=== PATIENT | female | born 1950 | race Caucasian/White ===

== ENCOUNTER 2020-03-13 13:50 | Emergency (ER) | payer MEDICARE ==
[~2020-03-13] VITALS: Ht 170.2 cm; Wt 85.5 kg
[~2020-03-13 13:50] MED LIST: METH2.5T PO; NEBI20TA2 PO
--- NOTE | 2020-03-13 14:18 | PHYS DOC ---
General Adult EDM: Chief Complaint: FEVER, thrush HPI: HPI: 69-year-old female presents with chief complaint of mouth soreness and thrush. The patient is currently on chemotherapy for breast cancer. Her last treatment was 7 days ago. She had a fever yesterday of 101, but the fever is gone today. She spoke with her oncologist who recommended she come to the ER because the patient did not want to go to the emergency room. She tells me that she is feeling pretty okay except for the thrush. It is worse on the bilateral tongue. She was given nystatin in the past and it was effective. She does not have a repeat prescription for this. Review of Systems: Review of Systems: Constitutional: Fever yesterday Eyes: Denies change in visual acuity HENT: Sore mouth and sore throat Respiratory: Denies cough or shortness of breath Cardiovascular: Denies chest pain or edema GI: Denies abdominal pain, nausea, vomiting, bloody stools or diarrhea : Denies dysuria Musculoskeletal: Denies back pain or joint pain Integument: Denies rash Neurologic: Denies headache, focal weakness or sensory changes Endocrine: Denies polyuria or polydipsia Lymphatic: Denies swollen glands Psychiatric: Denies depression or anxiety Heart Score: Risk Factors: Risk Factors: DM, Current or recent (<one month) smoker, HTN, HLP, family history of CAD, obesity. Risk Scores: Score 0 - 3: 2.5% MACE over next 6 weeks - Discharge Home Score 4 - 6: 20.3% MACE over next 6 weeks - Admit for Clinical Observation Score 7 - 10: 72.7% MACE over next 6 weeks - Early Invasive Strategies Allergies: Allergies: Allergies Coded Allergies Type Severity Reaction Last Updated Verified aspartame Allergy Unknown 03/13/20 Yes erythromycin base Allergy Unknown 12/01/14 Yes oxycodone Adverse Reaction Unknown Nausea 03/13/20 Yes Physical Exam: PE: Constitutional: Well developed, well nourished, no acute distress, non-toxic appearance. [] HENT: Normocephalic, atraumatic, bilateral external ears normal, oropharynx erythematous especially over the right tonsillar fossa, bilateral tongue erythema with grayish-white exudate. [] Eyes: PERRLA, EOMI, conjunctiva normal, no discharge. [] Neck: Normal range of motion, no tenderness, supple, no stridor. [] Cardiovascular: Heart rate regular rhythm, no murmur [] Lungs & Thorax: Bilateral breath sounds clear to auscultation [] Abdomen: Bowel sounds normal, soft, no tenderness, no masses, no pulsatile masses. [] Skin: Warm, dry, no erythema, no rash. [] Back: No tenderness, no CVA tenderness. [] Extremities: No tenderness, no cyanosis, no clubbing, ROM intact, no edema. [] Neurologic: Alert and oriented X 3, normal motor function, normal sensory function, no focal deficits noted. [] Psychologic: Affect normal, judgement normal, mood normal. [] EKG: EKG: [] Radiology/Procedures: Radiology/Procedures: [] Course & Med Decision Making: Course & Med Decision Making Pertinent Labs and Imaging studies reviewed. (See chart for details) The patient's labs are significant for a white count of 0.3. The rest of her labs are essentially unremarkable. She does not have a fever here. I spoke with the oncologist on-call for Dr. Pulido and Dr. Marie and he recommended 500 mg Levaquin daily for 10 days as well as Diflucan 100 mg daily for 6 days for her thrush. Patient is stable for discharge at this time. If she develops a fever, she should come back to the emergency room or go to [facility] or which are the admitting hospitals for her oncologist. I will give her first dose of Levaquin in the emergency room as well as 2 mg of Diflucan. [] Dragon Disclaimer: Gerald Disclaimer: This electronic medical record was generated, in whole or in part, using a voice recognition dictation system. Departure Departure: Impression: Primary Impression: Thrush, oral Additional Impression: Leukopenia Qualified Codes: D70.1 - Agranulocytosis secondary to cancer chemotherapy; T45.1X5A - Adverse effect of antineoplastic and immunosuppressive drugs, initial encounter Disposition: 01 HOME/RESIDENCE PRIOR TO ADM Condition: STABLE Referrals: NADINE VILLARREAL MD (PCP) Patient Instructions: Neutropenia Scripts Levofloxacin (LEVOFLOXACIN) 500 Mg Tablet 1 TAB PO DAILY for infection prophylaxis, #10 TAB Prov: ANAHI UREÑA DO 03/13/20 Fluconazole (DIFLUCAN) 100 Mg Tablet 100 MG PO DAILY for thrush for 6 Days, #6 TAB Prov: ANAHI UREÑA DO 03/13/20 ANAHI UREÑA DO March 13, 2020 14:18
[2020-03-13 14:52] LABS: CALCIUM 9.5 mg/dL (8.5-10.1); CREATININE 0.6 mg/dL (0.6-1.0); GFR 99.4; POTASSIUM 3.3 mmol/L (3.5-5.1)
[2020-03-13 14:54] LABS: BASO % 2 % (0-3); EOS % 3 % (0-3); HEMATOCRIT 28.8 % (36.0-47.0); HEMOGLOBIN 9.3 g/dL (12.0-15.5); LYMPH # 0.1 x10^3/uL (1.0-4.8); LYMPH % 25 % (24-48); MEAN CORPUSCULAR HEMOGLOBIN 26 pg (25-35); MEAN CORPUSCULAR HGB CONC 32 g/dL (31-37); MEAN CORPUSCULAR VOLUME 82 fL (79-100); MONO # 0.1 x10^3/uL (0.0-1.1); MONO % 23 % (0-9); NEUT # 0.1 x10^3uL (1.8-7.7); NEUT % 47 % (31-73); PLATELET COUNT 85 x10^3/uL (140-400); RED BLOOD COUNT 3.51 x10^6/uL (3.50-5.40); RED CELL DISTRIBUTION WIDTH 18.5 % (11.5-14.5)
[2020-03-13 14:57] LABS: ALBUMIN 2.8 g/dL (3.4-5.0); ALBUMIN/GLOBULIN RATIO 0.8 (1.0-1.7); TOTAL BILIRUBIN 0.5 mg/dL (0.2-1.0); TOTAL PROTEIN 6.2 g/dL (6.4-8.2)
--- NOTE | 2020-03-13 15:21 | RAD ---
Exam: Chest 2 views INDICATION: Fever, breast cancer TECHNIQUE: Frontal view of the chest Comparisons: 01/01/2020 FINDINGS: Left anterior chest wall port with catheter tip at the SVC again noted. The cardiomediastinal silhouette and pulmonary vessels are within normal limits. The lung and pleural spaces are clear. IMPRESSION: No acute pulmonary process. Electronically signed by: Ivette Nelsno MD (03/13/2020 3:18 PM) [id number]
[2020-03-13] MEDS ORDERED: FLUCONAZOLE 100 MG TABLET. PO ONE (15:30)
[2020-03-13 15:32] VITALS: BP 141/62
[2020-03-13 15:44] LABS: WHITE BLOOD COUNT 0.3 x10^3/uL (4.0-11.0)
[2020-03-13] MEDS ORDERED: levoFLOXacin 500 MG TABLET PO ONE (16:30)
[2020-03-13] MEDS ORDERED: FLUC100T7 PO (16:32)
[2020-03-13] MEDS ORDERED: LEVO500T8 PO (16:32)
[2020-03-13 16:44] LABS: BILIRUBIN,URINE NEG (NEG); CLARITY,URINE CLEAR; COLOR,URINE YELLOW; GLUCOSE,URINE NEG (NEG)
[2020-03-13 16:45] LABS: NITRITE,URINE NEG (NEG)
[2020-03-13 16:47] LABS: BACTERIA,URINE FEW /HPF (0-FEW); SQUAMOUS EPITHELIAL CELL,UR FEW /LPF; WBC,URINE OCC /HPF (0-4)
== END 2020-03-13 16:38 | disposition home or self-care (01) ==
LOC: ER 13:50
DX: B37.0 Candidal stomatitis (principal); D70.1 Agranulocytosis secondary to cancer chemotherapy; T45.1X5A Adverse effect of antineoplastic and immunosuppressive drugs, initial encounter; Z88.1 Allergy status to other antibiotic agents; Z88.5 Allergy status to narcotic agent; Z88.8 Allergy status to other drugs, medicaments and biological substances; Y92.89 Other specified places as the place of occurrence of the external cause
CPT/HCPCS: 36415; 71046; 80053; 81001; 85025; 99284